=== PATIENT | female | born 1935 ===

== ENCOUNTER 2018-01-17 15:20 | Inpatient (IN) | payer MEDICARE, BC ==
[2018-01-17] MEDS ORDERED: DIAZEPAM 2 MG PO SCH (18:15)
[2018-01-17] MEDS ORDERED: OXYCODONE HCL 5 MG PO SCH (18:15)
[2018-01-17 19:57] LABS: EGFR Non-African American 97.6 (>60)
[2018-01-17] MEDS: Gabapentin CAP(*) 100 MG PO SCH (20:28)
[2018-01-17] MEDS: Phenytoin CAP(*) 100 MG CAP.ER PO SCH (20:28)
[2018-01-17] MEDS: Potassium Chlor TAB* 20 MEQ TAB.ER PO SCH (20:29)
[2018-01-17] MEDS: Aspirin EC TAB* 81 MG TAB.EC PO SCH (20:29)
[2018-01-17] MEDS ORDERED: Heparin VIAL(*) 5000 UNITS/ML VIAL (FIVE THOUSAND) SUBCUT SCH ×2 (22:00)
[2018-01-17] MEDS: Diazepam TAB(*) 5 MG PO PRN (22:23)
[2018-01-17] MEDS: CMCS:Melatonin (NF) 3 MG TAB PO SCH (22:24)
--- NOTE | 2018-01-17 22:36 | HP ---
HOSPITAL MEDICINE HISTORY AND PHYSICAL: DATE OF ADMISSION: 01/17/18 ATTENDING PHYSICIAN: Dr. Ju James * (dictation provided by Jamia Shelton, BULMARO ). CHIEF COMPLAINT: Left hip pain. HISTORY OF PRESENT ILLNESS: Ms. Rayo is an 82-year-old female with a past medical history of multiple sclerosis and inability to ambulate due to lower extremity paralysis, who presents to the hospital today from [facility] in transfer after being found to have a left femur fracture. Ms. Rayo states that she has not been able to ambulate since 1986 secondary to her multiple sclerosis. She continues to live at home with support of aides. She is Dewey lifted into and out of bed. On 11/27/17, she had a spontaneous spiral femur fracture. She was seen in consultation by Dr. Glez at [facility], and per the patient report "everything was in place" and that the patient would be well served with just the use of immobilizer, without surgery. The patient states she has had some significant pain with this, but had been tolerating that reasonably well. However, last night she had severe pain in both of her hips through the evening and then this morning, when she was rolled over in bed, she had sudden onset of very severe pain in her left hip. She felt that she had broken her hip and, therefore, presented to [facility] for evaluation. Her left hip fracture was confirmed in the emergency room. The case was reviewed briefly with Dr. Young over the phone and transfer to [facility] [place] for further evaluation was recommended. Ms. Rayo states that at her baseline, again, she is not able to ambulate. She has no known history of coronary artery disease or cardiac problem. She has a very poor cough due to muscular weakness. This is relevant because the patient stated that she was deemed inappropriate for an abdominal surgery approximately 4 years ago when she had cholecystitis. She was evaluated at [facility] and it was felt by Surgical and Pulmonary Team to be inappropriate to go on for surgery at that point. She has had an external biliary drain for those 4 years due to the inability to tolerate that surgery. She denies any chest pain or shortness of breath with any of the activities she is able to do, which are extraordinarily limited. PAST MEDICAL HISTORY: 1. 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 The patient essentially only has use of her left arm. 2. GERD. 3. Diverticulosis. 4. History of cholecystitis, managed with biliary drain in situ. 5. Neurogenic bladder. 6. History of mastectomy. 7. History of hysterectomy. 8. History of appendectomy. 9. Recent left femoral spiral fracture. 10. Frequent UTIs. 11. Seizures. 12. Constipation. MEDICATIONS: 1. Actigall 300 mg p.o. b.i.d. 2. Antacid 1 tab p.o. at bedtime. 3. Cranberry 200 mg p.o. b.i.d. 4. Melatonin 5 mg p.o. at bedtime. 5. Multivitamin with mineral 1 tab p.o. daily. 6. Tylenol 825 mg p.o. q.4 hours p.r.n. 7. Vitamin D 50,000 units p.o. daily. 8. Aspirin 81 mg p.o. at bedtime. 9. Bactrim DS 800/160, one tab p.o. daily. 10. Gabapentin 100 mg p.o. at bedtime. 11. Meloxicam 7.5 mg p.o. daily. 12. Oxycodone 5 mg p.o. q.6 hours p.r.n. 13. Phenytoin 100 mg p.o. at bedtime. 14. Potassium 20 mEq p.o. b.i.d. 15. Protonix 40 mg p.o. b.i.d. 16. Sodium with docusate 1 tab, Friday, Friday, and . 17. Valium 2 mg p.o. q.4 hours p.r.n. ALLERGIES: BACLOFEN, FLUOXETINE, SERTRALINE. FAMILY HISTORY: The patient reports that her mother and father both had heart disease. Mother related to a fall. Father related to heart attack. She has 4 siblings. She only notes history for one, which is her brother, who has normal pressure hydrocephalus. SOCIAL HISTORY: The patient is a former smoker, she smoked from 1954 to 1979. She rarely drinks alcohol. No report of drug use. She lives alone. She states that her sister would be her healthcare proxy, her name is Iram Garcia. REVIEW OF SYSTEMS: A 14-point review of systems was completed with Ms. Rayo , and all those not mentioned above were negative. PHYSICAL EXAMINATION GENERAL: Ms. Rayo is lying in the bed, she is in no acute distress, eating dinner. VITAL SIGNS: Temperature 98.8, pulse rate 86, respiratory rate 16, O2 saturation 92% on room air, blood pressure 119/44. LUNGS: Clear to auscultation bilaterally, with no accessory muscle use and good aeration. HEART: S1, S2. No murmur, rub, or gallop. ABDOMEN: Soft, nontender, with bowel sounds positive x4. Patient has biliary drain to right upper abdomen with green drainage, there is leakage around drain onto dressing. No associated erythema. Silver catheter in situ with yellow urine. EXTREMITIES: No cyanosis, no edema. SKIN: Intact. NEUROLOGIC: She is alert. She is oriented x3. 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 She is paralysed in both lower extremities. Her face is symmetrical. Her pupils are equal and reactive. Extraocular movements are intact. DIAGNOSTIC STUDIES/LAB DATA: Data is pending. EKG is pending. ASSESSMENT: Ms. Rayo is an 82-year-old female with a past medical history of multiple sclerosis, who is paralyzed and has not walked since 1986, who presents to the hospital today with concern for a femur fracture. Our plans are for inpatient admission, with expected length of stay to be greater than 2 days, for the followin. Left femur fracture. This is in the setting of a recent spiral fracture of the left femur in November. The patient likely has significant osteoporosis related to immobility and being elderly. She would likely be a very poor candidate for surgery given the osteoporosis, but Dr. Young will consult with her tomorrow to determine if a surgical intervention would be appropriate. In terms of cardiac risk, the patient has no known cardiac history, but obviously has no ability to exercise to evaluate her functional capacity. I do plan to obtain an EKG. The patient's bigger worry would be for her pulmonary status as she, from the multiple sclerosis, has a very weak diaphragm and very poor cough. It may be helpful to consult with the tubular splitting machine tender and/or insole stiffener if surgical intervention is planned for perioperative management recommendations. I do not think any further medication changes or testing would change any of these risk. We will continue to review this and collaborate with the orthopedic team regarding a plan for Ms. Rayo's care. In the meantime, the patient will have pain medications p.r.n. 2. History of seizures. Plan to continue Keppra. 3. History of frequent urinary tract infections. Continue Bactrim. UA is pending. 4. DVT prophylaxis with heparin subcu. 5. Code status is DNR. TIME SPENT: Approximately 60 minutes were spent on the admission of this patient, more than half of that time was spent with the patient at the bedside reviewing the events leading up to this hospitalization, performing the physical examination, and reviewing my plan of care. JAMIA SHELTON, BULMARO [id number]/[facility] #: [id number] CANDELARIO
[2018-01-18 00:33] LABS: Urine Appearance Clear; Urine Blood Negative (Negative); Urine Color Yellow; Urine Ketones Negative (Negative); Urine Protein Negative (Negative); Urine Specific Gravity 1.019 (1.010-1.030); Urine Urobilinogen Negative (Negative)
[2018-01-18] MEDS: oxyCODONE/Acetamin 5/325 MG* TAB PO PRN ×3 (03:03→15:37)
[2018-01-18] MEDS: oxyCODONE TAB* 5 MG TAB PO PRN (05:07)
[2018-01-18] MEDS: Acetaminophen TAB* 325 MG PO PRN (05:30)
[2018-01-18 06:01] LABS: ABS Basophils 0 10^3/ul (0-0.2); ABS Eosinophils 0.1 10^3/ul (0-0.6); ABS Lymphocytes 1.4 10^3/ul (1.0-4.8); ABS Monocytes 0.8 10^3/ul (0-0.8); ABS Neutrophils 8.2 10^3/ul (1.5-7.7); ABS Nucleated RBC 0 10^3/ul; Eosinophil % 1.2 % (0-6); Hematocrit 37 % (35-47); Hemoglobin 12.5 g/dl (12.0-16.0); Lymphocyte % 13.5 % (25-47); Mean Corpuscular HGB Conc 34 g/dl (31-36); Mean Corpuscular Hemoglobin 33 pg (27-31); Mean Corpuscular Volume 98 fL (80-97); Mean Platelet Volume 7.7 um3 (7.4-10.4); Nucleated Red Blood Cells % 0; Platelet Count 216 10^3/ul (150-450); Red Blood Count 3.78 10^6/ul (4.0-5.4); Red Cell Distribution Width 13 % (10.5-15); White Blood Count 10.7 10^3/ul (3.5-10.8)
[2018-01-18] MEDS: Omeprazole CAP* 20 MG PO SCH (08:13)
[2018-01-18] MEDS ORDERED: PROTONIX 40 MG PO SCH (09:00)
[2018-01-18] MEDS ORDERED: Sulfamethox/Trimethoprim DS 800/160* TAB PO SCH (09:00)
[2018-01-18] MEDS: CMCS:Meloxicam(NF) 7.5 MG TAB PO SCH (09:43)
[2018-01-18] MEDS: Potassium Chlor TAB* 20 MEQ TAB.ER PO SCH ×2 (09:43→20:22)
--- NOTE | 2018-01-18 10:32 | ECHO ---
Patient: JACQUELINE SCOTT [facility] Rec#: [id number] : 1935 Date: 01/18/2018 Age: 82y Height: 165 cm / 65.0 in Weight: 71.4 kg / 157.4 lbs Sex: F BSA: 1.79 Room#: [facility] Admit Date#: 01/17/2018 Type: Inpatient Referring: Jamia Shelton NP Reading: Anton Shafer DO Chief Quality Officer: Melody Graf RN RDCS Transthoracic Echocardiogram Indication: Abnormal EKG showing LAE and RBBB BP: 131/44 HR: 101 Rhythm: Tachycardia Findings History: Multiple sclerosis with bilateral lower extremity paralysis, former smoker, GERD, mastectomy, recent left femur fracture Technical Comments: The study quality is fair. The study is technically limited due to the patient's smoking history. The study was technically limited due to the patient's inability to lay in the left lateral decubitus position. Left Ventricle: The left ventricular chamber size is normal. Basal interventricular septum shows moderate thickening. Global left ventricular wall motion and contractility are within normal limits. The left ventricle appears hyperdynamic. The estimated ejection fraction is greater than 65%. The assessment of diastolic function is non-diagnostic. Left Atrium: The left atrial chamber size is normal. Right Ventricle: The right ventricular chamber size and systolic function are within normal limits. Right Atrium: The right atrial cavity size is normal. Aortic Valve: The aortic valve is trileaflet. The aortic valve leaflets are mildly thickened. There is no evidence of aortic regurgitation. There is no evidence of aortic stenosis. Mitral Valve: Mild mitral annular calcification present. The mitral valve leaflets are mildly thickened. There is a trace of mitral regurgitation. There is no evidence of mitral stenosis. Tricuspid Valve: The tricuspid valve leaflets are normal. There is mild tricuspid regurgitation. The right ventricular systolic pressure is estimated at 63 mmHg. There is evidence of severe pulmonary hypertension. There is no tricuspid stenosis. Pulmonic Valve: The pulmonic valve structure is not well visualized. There is no evidence of pulmonic regurgitation. There is no pulmonic stenosis. Pericardium: There is no significant pericardial effusion. A pericardial fat pad is visualized. Aorta: There is no dilatation of the ascending aorta. There is no dilatation of the aortic arch. There is no dilation of the aortic root. Pulmonary Artery: The main pulmonary artery is not well visualized. Venous: The venous system is not well visualized. The inferior vena cava is not visualized. Conclusions The left ventricular chamber size is normal. Basal interventricular septum shows moderate thickening. Global left ventricular wall motion and contractility are within normal limits. The left ventricle appears hyperdynamic. The estimated ejection fraction is greater than 70%. The left atrial chamber size is normal. The right ventricular chamber size and systolic function are within normal limits. There is mild tricuspid regurgitation. There is evidence of severe pulmonary hypertension. The right ventricular systolic pressure is estimated at 63 mmHg assuming an RA pressure of 8 mmHg No prior studies available for comparison at time of interpretation Measurements Name Value Normal Range RVDdMajor (2D) 3.4 cm (2.2 - 4.4) RVAW (2D) 0.9 cm (0.2 - 0.5) RAd ISD 4CH 3.7 cm (3.4 - 4.9) RA (A4C)W 4.1 cm (2.9 - 4.6) IVSd (2D) 1 cm (0.6 - 1) LVPWd (2D) 1 cm (0.6 - 1) LVIDd (2D) 3.7 cm (3.6 - 5.4) LVIDs (2D) 2.3 cm - LV FS (2D) 38 % (25 - 45) Aortic Annulus 1.9 cm (1.4 - 2.6) Ao root diameter (2D) 3.1 cm (2.1 - 3.5) Ascending Ao 3.4 cm (2.1 - 3.4) Aortic arch 2.2 cm (1.8 - 3.4) LA dimension (AP) 2D 2.9 cm (2.3 - 3.8) LAd ISD 4CH 3.7 cm (2.9 - 5.3) LA ISD 4CH W 3.5 cm (2.5 - 4.5) Name Value Normal Range LA ESV SP 4CH (A/L) 43 ml - LA ESV SP 2CH (A/L) 17 ml - LA ESV BP (A/L) 28 ml - LA ESV BP (A/L) index 15.6 ml/m2 - LA ESV SP 4CH (MOD) 43 ml - LA ESV SP 2CH (MOD) 17 ml - Name Value Normal Range MV E-wave Vmax 0.75 m/sec - MV deceleration time 303 msec - MV A-wave Vmax 1 m/sec - MV E:A ratio 0.72 ratio - LV septal e' Vmax 0.05 m/sec - LV lateral e' Vmax 0.06 m/sec - LV E:e' septal ratio 15 ratio - LV E:e' lateral ratio 12.5 ratio - Name Value Normal Range AV Vmax 1.4 m/sec - AV VTI 25.9 cm - AV peak gradient 6.3 mmHg - AV mean gradient 4.8 mmHg - LVOT Vmax 0.98 m/sec - LVOT VTI 19.6 cm - LVOT peak gradient 3.8 mmHg - LVOT mean gradient 2.4 mmHg - ENID Vmax 0.45 m/sec - Name Value Normal Range TR Vmax 3.7 m/sec - TR peak gradient 55 mmHg - RAP 8 mmHg - RVSP 63 mmHg - Name Value Normal Range PV Vmax 1.2 m/sec -
--- NOTE | 2018-01-18 12:49 | RAD ---
INDICATION: Left hip injury. COMPARISON: There are no prior studies available for comparison. TECHNIQUE: An oblique view of the pelvis and an AP view of the left hip were obtained. The patient was unable to be positioned for the standard images. FINDINGS: The bones are osteopenic. There is a subcapital left femoral neck fracture which is displaced. The distal fragment is displaced laterally and the fracture fragments appear to be in varus angulation. IMPRESSION: DISPLACED ANGULATED SUBCAPITAL LEFT FEMORAL NECK FRACTURE.
--- NOTE | 2018-01-18 12:58 | RAD ---
INDICATION: Left femoral neck fracture, preoperative evaluation. COMPARISON: Comparison is made with prior x-ray study of the left hip. TECHNIQUE: 2 views of the left femur were obtained. FINDINGS: The bones are osteopenic. Again note is made of a displaced subcapital femoral neck fracture. There is also a slightly impacted acute to subacute fracture of the distal diaphysis of the femur approximately at the junction of the middle and distal thirds. There is also a band of sclerosis in the distal metaphysis which likely represents a slightly impacted subacute fracture. The results of this exam were discussed with the referring clinician. IMPRESSION: 1. ACUTE DISPLACED SUBCAPITAL FEMORAL NECK FRACTURE. 2. ACUTE TO SUBACUTE SLIGHTLY DISPLACED FRACTURE OF THE DISTAL DIAPHYSIS OF THE FEMUR. 3. PROBABLE SUBACUTE SLIGHTLY IMPACTED FRACTURE OF THE DISTAL METAPHYSIS OF THE FEMUR.
[2018-01-18] MEDS: Diazepam TAB(*) 5 MG PO PRN ×2 (15:41→22:07)
--- NOTE | 2018-01-18 15:59 | PN ---
Subjective Date of Service: 01/18/18 Interval History: Pain control OK. Objective Active Medications: Acetaminophen (Tylenol Tab*) 650 mg PO Q4H PRN PRN Reason: FEVER/PAIN Last Admin: 01/18/18 05:30 Dose: 650 mg Aspirin (Aspirin Ec Tab*) 81 mg PO BEDTIME [facility] Last Admin: 01/17/18 20:29 Dose: 81 mg Diazepam (Valium Tab(*)) 2.5 mg PO Q4H PRN PRN Reason: muscle spasm Last Admin: 01/18/18 15:41 Dose: 2.5 mg Docusate Sodium (Colace Cap*) 100 mg PO SuTuTh [facility] Gabapentin (Neurontin Cap(*)) 100 mg PO BEDTIME [facility] Last Admin: 01/17/18 20:28 Dose: 100 mg Melatonin (Melatonin (Nf)) 3 mg PO BEDTIME [facility] Last Admin: 01/17/18 22:24 Dose: Not Given Meloxicam (Mobic(Nf)) 7.5 mg PO DAILY [facility] Last Admin: 01/18/18 09:43 Dose: 7.5 mg Morphine Sulfate (Morphine Vial*) 1 mg IV Q4H PRN PRN Reason: PAIN Omeprazole (Prilosec Cap*) 20 mg PO DAILY@0730 [facility] Last Admin: 01/18/18 08:13 Dose: 20 mg Oxycodone HCl (Roxycodone Tab*) 5 mg PO Q6H PRN PRN Reason: PAIN Last Admin: 01/18/18 05:07 Dose: 5 mg Oxycodone/Acetaminophen (Percocet 5/325 Tab*) 1 tab PO Q4H PRN PRN Reason: Pain Last Admin: 01/18/18 15:37 Dose: 1 tab Phenytoin Sodium (Dilantin Cap(*)) 100 mg PO BEDTIME [facility] Last Admin: 01/17/18 20:28 Dose: 100 mg Potassium Chloride (Klor Con Er Tab*) 20 meq PO BID [facility] Last Admin: 01/18/18 09:43 Dose: 20 meq Senna (Senokot Tab*) 1 tab PO S[place]UTH [facility] Vital Signs - 8 hr 01/18/18 01/18/18 01/18/18 08:00 08:03 08:31 Temperature 97.9 F Pulse Rate 96 Respiratory 19 19 Rate Blood Pressure 91/37 110/58 (mmHg) O2 Sat by Pulse 91 Oximetry 01/18/18 01/18/18 01/18/18 10:57 11:01 11:33 Temperature 98.6 F 99.5 F Pulse Rate 96 Respiratory 18 18 Rate Blood Pressure 126/40 (mmHg) O2 Sat by Pulse 91 Oximetry 01/18/18 01/18/18 01/18/18 13:56 15:37 15:41 Temperature Pulse Rate Respiratory 18 16 16 Rate Blood Pressure (mmHg) O2 Sat by Pulse Oximetry Oxygen Devices in Use Now: None Appearance: Alert, partly up in bed. In good spirits. Looks comfortable. Eyes: No Scleral Icterus Respiratory: Symmetrical Chest Expansion and Respiratory Effort, Clear to Auscultation, Clear to Percussion Cardiovascular: NL Sounds; No Murmurs; No JVD, RRR, No Edema, - Extremities: No Edema, No Clubbing, Cyanosis, - - R leg flexed at hip and knee, everted. L leg in immobilizer. Skin: No Rash or Ulcers, No Nodules or Sclerosis, - Neurological: Alert and Oriented x 3 - No tremor. Paraplegic Result Diagrams: 01/18/18 05:39 01/18/18 05:39 Assess/Plan/Problems-Billing Assessment: - Patient Problems (1) Closed left femoral fracture Current Visit: Yes Status: Acute Code(s): S72.92XA - UNSP FRACTURE OF LEFT FEMUR, INIT ENCNTR FOR CLOSED FRACTURE SNOMED Code(s): 24571719 Comment: Patient is optimized for surgery. The benefits outweigh the risks. Portable CXR ordered to complete the pre-op evaluation. Her co-morbidities include severe pulmonary hypertension, neurogenic bladder, paraplegia, 26 yr hx of smoking, chronic biliary drain. (2) Pulmonary hypertension Current Visit: Yes Status: Acute Code(s): I27.20 - PULMONARY HYPERTENSION, UNSPECIFIED SNOMED Code(s): 82142459 Comment: Seen on echo 01/17/18. Previous echo over 20 yrs ago. Not causing sc 's at this time. Likely secondary to smoking hx. (3) Multiple sclerosis Current Visit: Yes Status: Acute Code(s): G35 - MULTIPLE SCLEROSIS SNOMED Code(s): 40242734 Comment: WC bound for many yrs, transfers with Dewey lift. (4) Neurogenic bladder Current Visit: Yes Status: Acute Code(s): N31.9 - NEUROMUSCULAR DYSFUNCTION OF BLADDER, UNSPECIFIED SNOMED Code(s): 380103949 Comment: Pt states she has poor emptying, aides press on her bladder twice a day at home. Silver for now. Abnl U/A, C&S pending as of 01/18. Start IV cefazolin 01/18. Note her C&S from 11/30 showed E.coli res to the SMX-TMP she takes chronically (which I d/c'd).
[2018-01-18] MEDS ORDERED: ceFAZolin 1 GM VIAL(*) 1 GM in NS 0.9% 50 ML* 50 ML IVPB SCH (16:00)
--- NOTE | 2018-01-18 16:21 | RAD ---
INDICATION: Preoperative evaluation. COMPARISON: There are no prior studies available for comparison. TECHNIQUE: A portable view of the chest was obtained. FINDINGS: The heart is within normal limits in size for this portable exam. The lungs are underinflated and clear. No pleural effusion is seen. There is a moderate dorsal scoliosis convex toward the right side. IMPRESSION: NO EVIDENCE FOR ACUTE DISEASE.
[2018-01-18] MEDS ORDERED: ceFAZolin 1 GM in Dextrose (*) 1 GM/50 ML BAG IVPB SCH (16:59)
[2018-01-18] MEDS: ceFAZolin 1 GM in Dextrose (*) 1 GM/50 ML BAG IVPB SCH (17:14)
[2018-01-18] MEDS ORDERED: Ondansetron ODT TAB* 4 MG SL PRN (17:58)
[2018-01-18] MEDS ORDERED: Ondansetron ODT TAB* 4 MG ONE (18:01)
[2018-01-18] MEDS ORDERED: Senna TAB PO SCH (18:04)
[2018-01-18] MEDS: Gabapentin CAP(*) 100 MG PO SCH (20:22)
[2018-01-18] MEDS: Phenytoin CAP(*) 100 MG CAP.ER PO SCH (20:22)
[2018-01-18] MEDS: CMCS:Melatonin (NF) 3 MG TAB PO SCH (20:23)
[2018-01-18] MEDS: Aspirin EC TAB* 81 MG TAB.EC PO SCH (20:23)
[2018-01-18] MEDS ORDERED: Docusate CAP* 100 MG PO SCH (20:37)
--- NOTE | 2018-01-18 20:37 | CONS ---
ORTHOPEDIC CONSULTATION REPORT: DATE OF CONSULT: 01/18/18 ATTENDING PHYSICIAN: Isabel Young MD Thank you for this orthopedic consultation. CHIEF COMPLAINT: Left hip pain. HISTORY OF PRESENT ILLNESS: Ms. Rayo is an 82-year-old female who is nonambulatory with end-stage multiple sclerosis. She has lower extremity paralysis. On 11/27/17, she caught her ankle, twisted her leg and had a left femoral shaft fracture. She has been treated by Dr. Glez for this. She has been treated nonoperatively in a knee immobilizer. The patient reports that she was feeling pain in the left hip throughout the evening, while sitting up and then when she rolled over in bed, she had the sudden onset of 10/10 pain in the left hip. Any movement through the hip increased her pain. She was brought to the [facility] Emergency Room and diagnosed with a displaced femoral neck fracture. The patient was [place] [facility] [place] and surgical candidacy review. Today, the patient is reporting that she was told she was not an appropriate surgical candidate 4 years ago at [facility] by the surgical and pulmonary team. She understands she is a high risk for surgery. Her number one priority is being able to get out of bed and sit in her wheelchair again. She would like to accept any risk and proceed with surgical intervention. PAST MEDICAL HISTORY: Multiple sclerosis with bilateral lower extremity paralysis. She essentially has the use of her left arm. GERD. Diverticulosis, cholecystitis history, neurogenic bladder, recent left femoral shaft fracture, osteoporosis, UTIs, seizures, chronic constipation. PAST SURGICAL HISTORY: Biliary drain placement for cholecystitis, mastectomy, hysterectomy, appendectomy. MEDICATIONS: 1. Actigall 300 mg p.o. b.i.d. 2. Melatonin 5 mg p.o. q.h.s. 3. Multivitamin 1 tab p.o. daily. 4. Vitamin D 50,000 units p.o. daily. 5. Aspirin 81 mg p.o. daily. 6. Bactrim DS 800/160 one tab p.o. daily. 7. Gabapentin 100 mg p.o. q.h.s. 8. Meloxicam 7.5 mg p.o. daily. 9. Oxycodone 5 mg q.6 hours p.r.n. 10. Phenytoin 100 mg p.o. q.h.s. 11. Potassium 20 mEq p.o. b.i.d. 12. Protonix 40 mg p.o. b.i.d. 13. Valium 2 mg p.o. q.4 hours p.r.n. ALLERGIES: BACLOFEN, FLUOXETINE, SERTRALINE. FAMILY HISTORY: Maternal and paternal heart disease. SOCIAL HISTORY: The patient is a former smoker. She rarely drinks alcohol. No recreational drug use. She is nonambulatory, essentially wheelchair bound with use of her left upper extremity only. Her sister is her healthcare proxy, Iram Garcia. REVIEW OF SYSTEMS: 14 systems reviewed with the patient today. Positive for left hip pain, left thigh pain, recent left femoral shaft fracture, bilateral lower extremity weakness and numbness. Otherwise, the patient reports review of systems is negative or not relevant. PHYSICAL EXAM: Vitals: Temperature 99.5, heart rate 96, blood pressure 126/ 40. General: The patient is a morbidly obese female lying in bed. She is alert and oriented x3. Pleasant mood, appropriate affect. She asks extremely intelligent and appropriate questions and is clear on her wants and needs. Gait is not assessed. Coordination not assessed. Heart: S1 and S2. Lungs: Clear to auscultation bilaterally. Unlabored breathing. Abdomen: Soft, nontender, nondistended. Biliary drain of right upper abdomen with a green drainage. Some leakage on to the dressing around the drain. Bilateral upper extremities: The patient's skin is intact. No bony tenderness to palpation. 2 + palpable radial pulses. Right lower extremity: The patient's skin is intact. No abrasions or open wounds. No active motion distally. Decreased sensation to light touch. 2+ palpable DP pulse. No bony tenderness to palpation. Left lower extremity: The patient's leg is externally rotated. Tenderness with palpation of the thigh. No motor distally. She has some decreased sensation distally. 2+ palpable DP pulse. DIAGNOSTIC STUDIES/LAB DATA: Labs from 01/18/18 show white blood cell 10.7, hematocrit 37, platelets 216,000. Sodium 135, potassium 4.6, chloride 109, BUN and creatinine 17 and 0.59. Urine positive for nitrites and bacteria. Radiographs: I have ordered left hip and femur views which show a displaced femoral neck fracture. Also a healing subacute femoral shaft fracture and a healing subacute distal femoral fracture. ASSESSMENT AND PLAN: Ms. Rayo is an 82-year-old female with end-stage multiple sclerosis, bilateral lower extremity paralysis and multiple medical comorbidities. Simply from a turn in bed, without trauma, she has a left femoral neck fracture. This is within 2 months of twisting injury to the left leg with femoral shaft fracture and distal femur fracture. The patient is an extremely poor surgical candidate. We discussed this at length today. She has extreme osteopenia on radiographs. There are essentially pathologic fractures secondary to osteoporosis. The patient and I discussed that the treatment for this hip fracture is a hemiarthroplasty. Due to her fractures distally, she is not a candidate for this. Her primary goal is to have pain relief at this point and be able to sit in her wheelchair again. I do feel that a Girdlestone procedure would be appropriate for her and our goal would be pain control and wheelchair accessibility. First and foremost, we will consult the medical team and cardiac team to see if she is a surgical candidate. We will also consult Anesthesia to see if she is a surgical candidate in their opinion. If both groups decide that she is high risk but still a surgical candidate, I am willing to perform left hip Girdlestone procedure. The patient understands that she is high risk for bleeding, infection, damage to nearby structures, re-fracture through her distal femoral fracture sites, intraoperative fracture, need for further surgery, failure to heal, continued pain, stroke, heart attack, blood clots, respiratory failure and . She wishes to proceed despite these high risks. For now, we will await Medicine, Cardiac and Anesthesia recommendations. She will have p.r.n. analgesia and be on bedrest. [id number]/[facility] [place] #: [id number] CANDELARIO
[2018-01-19] MEDS: ceFAZolin 1 GM in Dextrose (*) 1 GM/50 ML BAG IVPB SCH ×3 (01:21→16:56)
[2018-01-19] MEDS: oxyCODONE/Acetamin 5/325 MG* TAB PO PRN (04:19)
[2018-01-19] MEDS: Diazepam TAB(*) 5 MG PO PRN ×3 (04:19→21:35)
[2018-01-19] MEDS: Omeprazole CAP* 20 MG PO SCH (07:52)
[2018-01-19] MEDS: Multivitamins/Minerals TAB PO SCH (09:37)
[2018-01-19] MEDS: Potassium Chlor TAB* 20 MEQ TAB.ER PO SCH ×2 (09:37→21:37)
[2018-01-19] MEDS: CMCS:Meloxicam(NF) 7.5 MG TAB PO SCH (09:42)
--- NOTE | 2018-01-19 14:29 | PN ---
Progress Note - Progress Note Date of Service: 01/19/18 SOAP: Subjective: 82 y/o female with displaced femoral neck fracture, left. Patient would like surgery as wants to remain as independent as possible with wheel chair transfers. VSS, afebrile overnight. Objective: General- Well appearing, NAD, AO, Resting in bed comfortably. Vital Signs Temp 97.5 F 01/19/18 11:31 Pulse 98 01/19/18 11:31 Resp 18 01/19/18 14:01 BP 124/46 01/19/18 11:31 Pulse Ox 95 01/19/18 11:31 Intake & Output 01/18/18 01/19/18 01/19/18 18:59 06:59 18:59 Intake Total 240 890 Output Total 575 420 575 Balance -335 470 -575 Intake: IV Fluids 70 ABX - CEFAZOLIN 50 NS (0.9%) 20 Oral 240 820 Output: Pigtail Drain 300 50 450 Urine 120 Silver 275 250 125 Other: # Bowel Movements 0 Assessment: Stable displaced femoral neck fracture, left Plan: - Possible OR for pelvic girdle procedure, unable to do aliyah due to patients femoral fracture. Patient is high risk for poor wound, bone healing due to non- weigth bearing. - Pulmonary Hypertension- Dr. White to see this afternoon - DVT prophylaxis- lovenox in house, hold for procedure - NPO pMN - PT/ OT - H&H - Stable. Acetaminophen (Tylenol Tab*) 650 mg PO Q4H PRN PRN Reason: FEVER/PAIN Last Admin: 01/18/18 05:30 Dose: 650 mg Aspirin (Aspirin Ec Tab*) 81 mg PO BEDTIME [facility] Last Admin: 01/18/18 20:23 Dose: 81 mg Diazepam (Valium Tab(*)) 2.5 mg PO Q4H PRN PRN Reason: muscle spasm Last Admin: 01/19/18 11:11 Dose: 2.5 mg Docusate Sodium (Colace Cap*) 100 mg PO SuTuTh [facility] Last Admin: 01/18/18 20:23 Dose: 100 mg Gabapentin (Neurontin Cap(*)) 100 mg PO BEDTIME [facility] Last Admin: 01/18/18 20:22 Dose: 100 mg Cefazolin Sodium/Dextrose (Kefzol 1 Gm In Dextrose Duplex (*)) 1 gm in 50 mls @ 200 mls/hr IVPB Q8H [facility] Last Admin: 01/19/18 09:42 Dose: 200 mls/hr Melatonin (Melatonin (Nf)) 3 mg PO BEDTIME [facility] Last Admin: 01/18/18 20:23 Dose: Not Given Meloxicam (Mobic(Nf)) 7.5 mg PO DAILY [facility] Last Admin: 01/19/18 09:42 Dose: 7.5 mg Morphine Sulfate (Morphine Vial*) 1 mg IV Q4H PRN PRN Reason: PAIN Multivitamins/Minerals (Theragran/Minerals Tab*) 1 tab PO DAILY [facility] Last Admin: 01/19/18 09:37 Dose: 1 tab Omeprazole (Prilosec Cap*) 20 mg PO DAILY@0730 [facility] Last Admin: 01/19/18 07:52 Dose: 20 mg Ondansetron HCl (Zofran Odt Tab*) 4 mg SL Q4H PRN PRN Reason: NAUSEA/VOMITING Oxycodone HCl (Roxycodone Tab*) 5 mg PO Q6H PRN PRN Reason: PAIN Last Admin: 01/18/18 05:07 Dose: 5 mg Oxycodone/Acetaminophen (Percocet 5/325 Tab*) 1 tab PO Q4H PRN PRN Reason: Pain Last Admin: 01/19/18 04:19 Dose: 1 tab Phenytoin Sodium (Dilantin Cap(*)) 100 mg PO BEDTIME [facility] Last Admin: 01/18/18 20:22 Dose: 100 mg Potassium Chloride (Klor Con Er Tab*) 20 meq PO BID [facility] Last Admin: 01/19/18 09:37 Dose: 20 meq Senna (Senokot Tab*) 1 tab PO [facility] [facility] Last Admin: 01/18/18 18:12 Dose: 1 tab
[2018-01-19] MEDS ORDERED: Heparin VIAL(*) 5000 UNITS/ML VIAL (FIVE THOUSAND) SUBCUT SCH (15:28)
--- NOTE | 2018-01-19 15:31 | PN ---
Subjective Date of Service: 01/19/18 Interval History: Complains of pain at the left hip and also in the distal left femur. she also feels her left hand is a little weaker than usual. Objective Active Medications: Acetaminophen (Tylenol Tab*) 650 mg PO Q4H PRN PRN Reason: FEVER/PAIN Last Admin: 01/18/18 05:30 Dose: 650 mg Aspirin (Aspirin Ec Tab*) 81 mg PO BEDTIME [facility] Last Admin: 01/18/18 20:23 Dose: 81 mg Diazepam (Valium Tab(*)) 2.5 mg PO Q4H PRN PRN Reason: muscle spasm Last Admin: 01/19/18 11:11 Dose: 2.5 mg Docusate Sodium (Colace Cap*) 100 mg PO SuTuTh [facility] Last Admin: 01/18/18 20:23 Dose: 100 mg Gabapentin (Neurontin Cap(*)) 100 mg PO BEDTIME [facility] Last Admin: 01/18/18 20:22 Dose: 100 mg Cefazolin Sodium/Dextrose (Kefzol 1 Gm In Dextrose Duplex (*)) 1 gm in 50 mls @ 200 mls/hr IVPB Q8H [facility] Last Admin: 01/19/18 09:42 Dose: 200 mls/hr Melatonin (Melatonin (Nf)) 3 mg PO BEDTIME [facility] Last Admin: 01/18/18 20:23 Dose: Not Given Meloxicam (Mobic(Nf)) 7.5 mg PO DAILY [facility] Last Admin: 01/19/18 09:42 Dose: 7.5 mg Morphine Sulfate (Morphine Vial*) 1 mg IV Q4H PRN PRN Reason: PAIN Multivitamins/Minerals (Theragran/Minerals Tab*) 1 tab PO DAILY [facility] Last Admin: 01/19/18 09:37 Dose: 1 tab Omeprazole (Prilosec Cap*) 20 mg PO DAILY@0730 [facility] Last Admin: 01/19/18 07:52 Dose: 20 mg Ondansetron HCl (Zofran Odt Tab*) 4 mg SL Q4H PRN PRN Reason: NAUSEA/VOMITING Oxycodone HCl (Roxycodone Tab*) 5 mg PO Q6H PRN PRN Reason: PAIN Last Admin: 01/18/18 05:07 Dose: 5 mg Oxycodone/Acetaminophen (Percocet 5/325 Tab*) 1 tab PO Q4H PRN PRN Reason: Pain Last Admin: 01/19/18 04:19 Dose: 1 tab Phenytoin Sodium (Dilantin Cap(*)) 100 mg PO BEDTIME [facility] Last Admin: 01/18/18 20:22 Dose: 100 mg Potassium Chloride (Klor Con Er Tab*) 20 meq PO BID [facility] Last Admin: 01/19/18 09:37 Dose: 20 meq Senna (Senokot Tab*) 1 tab PO [place] [facility] Last Admin: 01/18/18 18:12 Dose: 1 tab Vital Signs - 8 hr 01/19/18 01/19/18 01/19/18 07:44 08:00 11:11 Temperature 97.3 F Pulse Rate 103 Respiratory 14 18 18 Rate Blood Pressure 137/41 (mmHg) O2 Sat by Pulse Oximetry 01/19/18 01/19/18 11:31 14:01 Temperature 97.5 F Pulse Rate 98 Respiratory 16 18 Rate Blood Pressure 124/46 (mmHg) O2 Sat by Pulse 95 Oximetry Oxygen Devices in Use Now: Nasal Cannula Appearance: alert, no distress, nontoxic Eyes: No Scleral Icterus Ears/Nose/Mouth/Throat: NL Teeth, Lips, Gums Neck: NL Appearance and Movements; NL JVP Respiratory: Symmetrical Chest Expansion and Respiratory Effort, Clear to Auscultation Cardiovascular: RRR, No Edema Abdominal: NL Sounds; No Tenderness; No Distention, No Hepatosplenomegaly, - - biliary drain ruq draining yellow-brown Lymphatic: No Cervical Adenopathy Extremities: No Edema Skin: No Rash or Ulcers Neurological: Alert and Oriented x 3, - - strength 3/5 LUE, 0/5 in RUE, and b/l LEs, sensation in tact Result Diagrams: 01/18/18 05:39 01/18/18 05:39 Microbiology and Other Data: Microbiology 01/17/18 12:00 Urine Culture - Preliminary Urine Escherichia Coli Assess/Plan/Problems-Billing Assessment: - Patient Problems (1) Closed left femoral fracture Current Visit: Yes Status: Acute Code(s): S72.92XA - UNSP FRACTURE OF LEFT FEMUR, INIT ENCNTR FOR CLOSED FRACTURE SNOMED Code(s): 25375643 Comment: I had a long discussion with Ms. Rayo and her sister Iram about the risks of surgery, and whether it will be helpful to her. Ultimately, her biggest goal is to be able to get out of bed and into her wheelchair--she is able to host friends, facetime on her ipad, and socialize in her wheelchair, and these are her biggest priorities. She volunteered that she would risk perioperatively to avoid being bedbound. Certainly she is elevated risk for perioperative complications and she needs further evaluation, specifically by Dr. White. Of note, she was not deemed to be an operative candidate a few years ago for her gallbladder because of the need for general anesthesia, but for this procedure, spinal anesthesia will be used. From a cardiac standpoint, NSQIP: 0.6% risk for major adverse cardiac event RCRI: 0.4% risk for major adverse cardiac event Based on these risks, no further cardiac work up is necessary unless recommended from a PH standpoint, as she has severely elevated RVSP (2) Multiple sclerosis Current Visit: Yes Status: Acute Code(s): G35 - MULTIPLE SCLEROSIS SNOMED Code(s): 54503899 Comment: WC bound for many yrs, transfers with Dewey lift Uses left hand, other extremities not usable. (3) Neurogenic bladder Current Visit: Yes Status: Acute Code(s): N31.9 - NEUROMUSCULAR DYSFUNCTION OF BLADDER, UNSPECIFIED SNOMED Code(s): 370757040 Comment: At home, gets straight cath BID Now with paz periop Abnl U/A, IV cefazolin started 01/18. Note her C&S from 11/30 showed E.coli res to the SMX-TMP she takes chronically ( now d/c'd). (4) Pulmonary hypertension Current Visit: Yes Status: Acute Code(s): I27.20 - PULMONARY HYPERTENSION, UNSPECIFIED SNOMED Code(s): 05380241 Comment: appreciate evaluation by Dr. White re: utility of pulmonary vasodilators at this point?
[2018-01-19] MEDS: Acetaminophen TAB* 325 MG PO PRN ×2 (16:11→21:33)
[2018-01-19] MEDS: oxyCODONE TAB* 5 MG TAB PO PRN (19:23)
[2018-01-19 20:08] LABS: ABS Basophils 0.1 10^3/ul (0-0.2); ABS Eosinophils 0.2 10^3/ul (0-0.6); ABS Lymphocytes 1.4 10^3/ul (1.0-4.8); ABS Monocytes 0.8 10^3/ul (0-0.8); ABS Neutrophils 8.6 10^3/ul (1.5-7.7); ABS Nucleated RBC 0 10^3/ul; Eosinophil % 1.8 % (0-6); Hematocrit 36 % (35-47); Hemoglobin 11.8 g/dl (12.0-16.0); Lymphocyte % 12.9 % (25-47); Mean Corpuscular HGB Conc 33 g/dl (31-36); Mean Corpuscular Hemoglobin 33 pg (27-31); Mean Corpuscular Volume 100 fL (80-97); Mean Platelet Volume 7.8 um3 (7.4-10.4); Nucleated Red Blood Cells % 0; Platelet Count 181 10^3/ul (150-450); Red Blood Count 3.64 10^6/ul (4.0-5.4); Red Cell Distribution Width 14 % (10.5-15); White Blood Count 11.1 10^3/ul (3.5-10.8)
[2018-01-19 20:16] LABS: INR 0.95 (0.77-1.02)
[2018-01-19 20:22] LABS: EGFR Non-African American 80.1 (>60)
--- NOTE | 2018-01-19 21:12 | CONS ---
PULMONARY CONSULTATION REPORT: DATE OF CONSULT: 01/19/18 CONSULTATION REQUESTED BY: ALIZE Welch/ Dr. Young. REASON FOR CONSULT: Evaluation of pulmonary complication risk in patient with pulmonary hypertension. HISTORY OF PRESENT ILLNESS: The patient is an 82-year-old female with history of multiple sclerosis, bedridden due to lower extremity paralysis, who was transferred from [facility] after being found to have left femur fracture. She has not been able to ambulate since 1986 secondary to multiple sclerosis, lives at home with help of aides. On 11/27/17, she had spontaneous femur fracture, was seen by Dr. Glez in [facility] and was being served with use of immobilizer without need for surgery. She has been having significant pain due to the immobilizer and has not been able to tolerate it well, her pain has progressed significantly, and was noted to have a fracture. The patient was transferred to [facility] for further evaluation. The patient is a former smoker, never was diagnosed with COPD or other lung problems. She denies chronic cough or sputum production. She had quit smoking in . She has not been on any inhalers for her breathing. The patient reports that she has difficulty expectorating the phlegm. She has a history of cholecystitis, needed surgery which was postponed because of her complications and underwent cholecystostomy. The patient is not in any apparent distress at the time of exam. She has no known history of coronary artery disease or cardiac problems. She also has a history of seizure disorder and neurogenic bladder. She is unable to provide any information regarding dyspnea on exertion as she does not ambulate. She underwent a biliary drain placement 4 years ago due to inability to tolerate the surgery and also deemed to be at high complication risk for any surgical procedure. Further evaluation included chest x-ray and echocardiogram. I have personally reviewed chest x- ray images. The patient noted to have clear lung wasserman with no evidence of pleural effusion, fibrosis or atelectasis. Echocardiogram showed evidence of severe pulmonary hypertension with estimated right ventricular pressure of 63. The patient also noted to have mild tricuspid regurgitation. Right ventricular chamber size and systolic function are within normal limits. Ejection fraction was estimated at 70% with hyperdynamic left ventricle. The patient otherwise without any fevers, chills. Has chronic constipation, which is unchanged. Also has history of neurogenic bladder with urine cultures positive for E. coli. PAST MEDICAL HISTORY: 1. 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 2. GERD. 3. Diverticulosis. 4. Cholecystitis, managed with biliary drain in situ. 5. Neurogenic bladder. 6. Mastectomy. 7. Hysterectomy. 8. Appendectomy. 9. Recent left femoral spiral fracture. 10. Frequent UTIs. 11. Seizures. 12. Constipation. MEDICATIONS: 1. Actigall 300 mg p.o. b.i.d. 2. Antacid 1 tab at bedtime. 3. Cranberry 200 mg p.o. b.i.d. 4. Melatonin 5 mg p.o. at bedtime. 5. Multivitamin with mineral 1 tablet daily. 6. Tylenol 650 mg p.o. q.4 hours p.r.n. for pain. 7. Vitamin D. 8. Aspirin. 9. Bactrim double strength. 10. Gabapentin. 11. Meloxicam. 12. Oxycodone. 13. Phenytoin. 14. Potassium. 15. Protonix. 16. Sodium with docusate. 17. Valium. ALLERGIES: BACLOFEN, FLUOXETINE, SERTRALINE. FAMILY HISTORY: Mother and father with heart disease. Mother related to fall. Father related to heart attack. She has 4 siblings, her sister is her healthcare proxy. SOCIAL HISTORY: Former smoker, smoked from 1954 to 1979. Rarely drinks alcohol. No drug abuse. Lives alone with her both home health aides. Sister is healthcare proxy. REVIEW OF SYSTEMS: All 14 systems were reviewed and as per HPI. PHYSICAL EXAM: Morbidly obese female in bed, in no apparent distress. Vital Signs: Temperature 97.5, pulse 98 beats per minute, respiratory rate 16 per minute, O2 sat 95% on 2 L, blood pressure 124/46. HEENT: Pupils equal, reactive to light. Mucous membranes moist. Lungs: Clear to auscultation bilaterally, diminished air entry at bases. Cardiovascular: S1, S2 present, regular. Abdomen: Obese. Bowel sounds present. Biliary drain in the right abdomen with green drainage. Extremities: Normal range of motion in the right extremity. Skin: Intact. No rash. Neurologic: Alert, oriented x3. Can only move left upper extremity with weak respiratory care instructor of the left hand. Paralyzed in lower extremities. Could not move her right upper extremity. DIAGNOSTIC STUDIES/LAB DATA: WBC count 10.7, hemoglobin 12.5, hematocrit 37, platelet count 216,000. Sodium 135, potassium 4.6, chloride 109, bicarb 16, BUN 17, creatinine 0.59, glucose 148, calcium 8.2. UA positive, cultures E. coli. Chest x-ray as described above in HPI. Echo as described above in HPI. IMPRESSION AND RECOMMENDATIONS: 82-year-old obese female with history of multiple sclerosis, with lower extremity paralysis, weakness of upper extremity , chronically bedridden with left hip spiral fractures. Pulmonary consultation was requested given significant comorbidities and finding of severe pulmonary hypertension on echocardiogram. The patient is being evaluated for possible pelvic girdle procedure. The patient is very high risk for postop complications given her comorbidities. - Pulmonary hypertension, severe. -Chronically bedridden status and paralysis with weak cough reflex and inability to mobilize after surgery. 1.The patient with severe pulmonary hypertension noted on echocardiogram. Unclear etiology of pulmonary hypertension; however, possibilities include underlying sleep apnea that is not being diagnosed or treated, possible chronic obstructive pulmonary disease or from chronic thromboembolism. Her chest x-ray does not show significant hyperinflation. She does not have significant atelectasis or any evidence of scar tissue. Pulmonary hypertension definitely puts her in high risk for postoperative complications. Spinal anesthesia is generally better tolerated, preferred over general anesthesia in patients with pulmonary hypertension. She is at increased risk for hypoxemia, right heart failure and circulatory collapse during and in the postoperative period. The patients with pulmonary hypertension require careful monitoring of fluid balance , oxygenation status and hemodynamic status radha and postoperatively. Unfortunately, we could not get any information regarding her exercise tolerance as she is chronically bedridden. She might have been symptomatic just because of her bedridden status. Patients with severe pulmonary hypertension are at high risk for postoperative right heart failure and respiratory complications. They would benefit from close perioperative monitoring with right heart catheterization to monitor the hemodynamic parameters. Close monitoring of the hemodynamic status, avoiding aggressive hydration and using diuretics would be helpful. 2. She is chronically bedridden and paralyzed from multiple sclerosis, which also makes it more challenging to mobilize her postsurgery. She is at high risk for atelectasis, mucus plugging. She has poor cough reflex at baseline, which could complicate things. Due to her bedridden status, she is also at increased risk for deep venous thrombosis and pulmonary embolism postoperatively. I definitely think the patient is at very high surgical risk for postoperative complications. Unfortunately, other than maintaining euvolemic status which she is already in, there is no other management option at this point to optimize her for surgery. Since we do not know her right- sided pressures nor her wedge pressures with invasive testing with right heart cath, I would not be able to recommend any medications for pulmonary hypertension at this time. If the anesthesiologist would be able to place right heart catheter and then monitor the hemodynamics through the surgery and determine the wedge pressure and use diuretics and pulmonary hypertension medications, then it would be feasible. If this couldnot be performed here, transport to facility where swan anahi placement and monitoring of hemodynamic status could be performed should be considered. I have discussed above with the patient and her sister Angle over phone. Thank you for allowing me to participate in the care of your patient. Above recommendations were discussed with Tressa HERRMANN. [id number]/[facility] #: [id number] CANDELARIO
[2018-01-19] MEDS: CMCS:Melatonin (NF) 3 MG TAB PO SCH (21:31)
[2018-01-19] MEDS: Phenytoin CAP(*) 100 MG CAP.ER PO SCH (21:32)
[2018-01-19] MEDS: Gabapentin CAP(*) 100 MG PO SCH (21:34)
[2018-01-19] MEDS: Aspirin EC TAB* 81 MG TAB.EC PO SCH (21:36)
[2018-01-19] MEDS: Morphine VIAL* 4 MG/ML VIAL (1 ml vial) IV PRN (23:49)
[2018-01-20] MEDS: oxyCODONE TAB* 5 MG TAB PO PRN (00:34)
[2018-01-20] MEDS: ceFAZolin 1 GM in Dextrose (*) 1 GM/50 ML BAG IVPB SCH ×2 (00:37→11:01)
[2018-01-20] MEDS: oxyCODONE/Acetamin 5/325 MG* TAB PO PRN ×2 (05:10→12:43)
[2018-01-20] MEDS: Morphine VIAL* 4 MG/ML VIAL (1 ml vial) IV PRN (07:49)
[2018-01-20] MEDS: Omeprazole CAP* 20 MG PO SCH ×2 (11:00→12:43)
[2018-01-20] MEDS: Potassium Chlor TAB* 20 MEQ TAB.ER PO SCH (12:43)
[2018-01-20] MEDS: CMCS:Meloxicam(NF) 7.5 MG TAB PO SCH (12:43)
[2018-01-20] MEDS: Multivitamins/Minerals TAB PO SCH (12:44)
[2018-01-20] MEDS: Diazepam TAB(*) 5 MG PO PRN (12:52)
--- NOTE | 2018-01-20 15:46 | PN ---
Progress Note - Progress Note Date of Service: 01/20/18 SOAP: Subjective: []Patient seen at bedside. Her left leg is quite painful at this time. Denies chest pain, shortness of breath or dizziness. Objective: [] Vital Signs Temp 97.9 F 01/20/18 04:11 Pulse 90 01/20/18 04:11 Resp 18 01/20/18 12:52 BP 117/38 01/20/18 04:11 Pulse Ox 92 01/20/18 04:11 Intake & Output 01/19/18 01/20/18 01/20/18 18:59 06:59 18:59 Intake Total 240 0 120 Output Total 575 805 200 Balance -335 -805 -80 Intake: Oral 240 0 120 Output: Pigtail Drain 450 245 Silver 125 560 200 Other: Estimated Void Small Laboratory Last Values WBC 11.1 10^3/ul (3.5-10.8) H 01/19/18 20:01 RBC 3.64 10^6/ul (4.0-5.4) L 01/19/18 20:01 Hgb 11.8 g/dl (12.0-16.0) L 01/19/18 20:01 Hct 36 % (35-47) 01/19/18 20:01 MCV 100 fL (80-97) H 01/19/18 20:01 MCH 33 pg (27-31) H 01/19/18 20:01 MCHC 33 g/dl (31-36) 01/19/18 20:01 RDW 14 % (10.5-15) 01/19/18 20:01 Plt Count 181 10^3/ul (150-450) 01/19/18 20:01 MPV 7.8 um3 (7.4-10.4) 01/19/18 20:01 Neut % (Auto) 77.5 % (38-83) 01/19/18 20:01 Lymph % (Auto) 12.9 % (25-47) L 01/19/18 20:01 [place] % (Auto) 7.2 % (0-7) H 01/19/18 20:01 Eos % (Auto) 1.8 % (0-6) 01/19/18 20:01 Baso % (Auto) 0.6 % (0-2) 01/19/18 20:01 Absolute Neuts (auto) 8.6 10^3/ul (1.5-7.7) H 01/19/18 20:01 Absolute Lymphs (auto) 1.4 10^3/ul (1.0-4.8) 01/19/18 20:01 Absolute Monos (auto) 0.8 10^3/ul (0-0.8) 01/19/18 20:01 Absolute Eos (auto) 0.2 10^3/ul (0-0.6) 01/19/18 20:01 Absolute Basos (auto) 0.1 10^3/ul (0-0.2) 01/19/18 20:01 Absolute Nucleated RBC 0 10^3/ul 01/19/18 20:01 Nucleated RBC % 0 01/19/18 20:01 INR (Anticoag Therapy) 0.95 (0.77-1.02) 01/19/18 20:01 APTT 26.9 seconds (26.0-36.3) 01/19/18 20:01 Sodium 135 mmol/L (139-145) L 01/17/18 19:02 Potassium 4.6 mmol/L (3.5-5.0) 01/18/18 05:39 Chloride 109 mmol/L (101-111) 01/17/18 19:02 Carbon Dioxide 16 mmol/L (22-32) L 01/17/18 19:02 Anion Gap 10 mmol/L (2-11) 01/17/18 19:02 BUN 19 mg/dL (6-24) 01/19/18 20:01 Creatinine 0.70 mg/dL (0.51-0.95) 01/19/18 20:01 Est GFR ( Amer) 103.0 (>60) 01/19/18 20:01 Est GFR (Non-Af Amer) 80.1 (>60) 01/19/18 20:01 BUN/Creatinine Ratio 28.8 (8-20) H 01/17/18 19:02 Glucose 148 mg/dL (70-100) H 01/17/18 19:02 Calcium 8.2 mg/dL (8.6-10.3) L 01/17/18 19:02 Urine Color Yellow 01/17/18 12:00 Urine Appearance Clear 01/17/18 12:00 Urine pH 6.0 (5-9) 01/17/18 12:00 Ur Specific Thoreau 1.019 (1.010-1.030) 01/17/18 12:00 Urine Protein Negative (Negative) 01/17/18 12:00 Urine Ketones Negative (Negative) 01/17/18 12:00 Urine Blood Negative (Negative) 01/17/18 12:00 Urine Nitrate Positive (Negative) A 01/17/18 12:00 Urine Bilirubin Negative (Negative) 01/17/18 12:00 Urine Urobilinogen Negative (Negative) 01/17/18 12:00 Ur Leukocyte Esterase Negative (Negative) 01/17/18 12:00 Urine WBC (Auto) Trace(0-5/hpf) (Absent) 01/17/18 12:00 Urine RBC (Auto) Trace(0-2/hpf) (Absent) 01/17/18 12:00 Ur Squamous Epith Cells Present (Absent) A 01/17/18 12:00 Urine Bacteria 3+ (Absent) A 01/17/18 12:00 Urine Glucose Negative (Negative) 01/17/18 12:00 General: Laying comfortably in bed, NAD LLE: immobilizer in place. Thigh is tender but compressible without erythema or skin breakdown. Cannot df/pf which is baseline. DP 2+, capillary refill less than two seconds distally. BL LE: Calves supple and nontender without erythema, edema or palpable cords. Assessment: []Displaced femoral neck fracture, left Plan: - DVT prophylaxis- heparin in house - PT/ OT - Likely requires transfer to facility with ability to monitor pressures with swan anahi during procedure
[2018-01-20] MEDS ORDERED: Heparin VIAL(*) 5000 UNITS/ML VIAL (FIVE THOUSAND) SUBCUT SCH (16:00)
--- NOTE | 2018-01-20 16:21 | PN ---
Progress Note - Progress Note Date of Service: 01/20/18 - Pulm f/u note Note: Pt seen and examined at bedside. No new complaints. Pain is better Active Medications Generic Name Dose Route Start Last Admin Trade Name Freq PRN Reason Stop Dose Admin Acetaminophen 650 mg 01/17/18 17:03 01/19/18 21:33 Tylenol Tab* PO 650 mg Q4H PRN Administration FEVER/PAIN Aspirin 81 mg 01/17/18 21:00 01/19/18 21:36 Aspirin Ec Tab* PO 81 mg BEDTIME ИРИНА Administration Diazepam 2.5 mg 01/17/18 18:34 01/20/18 12:52 Valium Tab(*) PO 2.5 mg Q4H PRN Administration muscle spasm Docusate Sodium 100 mg 01/18/18 20:37 01/18/18 20:23 Colace Cap* PO 100 mg SuTuTh ИРИНА Administration Gabapentin 100 mg 01/17/18 21:00 01/19/18 21:34 Neurontin Cap(*) PO 100 mg BEDTIME ИРИНА Administration Heparin Sodium (Porcine) 5,000 units 01/20/18 16:00 Heparin Vial(*) SUBCUT Q8H ИРИНА Cefazolin Sodium/Dextrose 1 gm in 50 mls @ 200 mls/hr 01/18/18 17:00 11:01 Kefzol 1 Gm In Dextrose Duplex (*) IVPB 200 mls/hr Q8H ИРИНА Administration Melatonin 3 mg 01/17/18 21:00 01/19/18 21:31 Melatonin (Nf) PO 3 mg BEDTIME ИРИНА Administration Meloxicam 7.5 mg 01/18/18 09:00 01/20/18 12:43 Mobic(Nf) PO 7.5 mg DAILY ИРИНА Administration Morphine Sulfate 1 mg 01/17/18 17:03 01/20/18 07:49 Morphine Vial* IV 1 mg Q4H PRN Administration PAIN Multivitamins/Minerals 1 tab 01/19/18 09:00 01/20/18 12:44 Theragran/Minerals Tab* PO 1 tab DAILY ИРИНА Administration Omeprazole 20 mg 01/18/18 07:30 01/20/18 12:43 Prilosec Cap* PO 20 mg DAILY@0730 ИРИНА Administration Ondansetron HCl 4 mg 01/18/18 17:58 01/20/18 07:42 Zofran Odt Tab* SL 4 mg Q4H PRN Administration NAUSEA/VOMITING Oxycodone HCl 5 mg 01/17/18 18:34 01/20/18 00:34 Roxycodone Tab* PO 5 mg Q6H PRN Administration PAIN Oxycodone/Acetaminophen 1 tab 01/17/18 17:03 01/20/18 12:43 Percocet 5/325 Tab* PO 1 tab Q4H PRN Administration Pain Phenytoin Sodium 100 mg 01/17/18 21:00 01/19/18 21:32 Dilantin Cap(*) PO 100 mg BEDTIME ИРИНА Administration Potassium Chloride 20 meq 01/17/18 21:00 01/20/18 12:43 Klor Con Er Tab* PO 20 meq BID ИРИНА Administration Senna 1 tab 01/18/18 18:04 01/18/18 18:12 Senokot Tab* PO 1 tab SUTUTH ИРИНА Administration Vital Signs Temp Pulse Resp BP Pulse Ox 97.9 F 90 18 117/38 92 01/20/18 04:11 01/20/18 04:11 01/20/18 12:52 01/20/18 04:11 01/20/18 04:11 O/E: Obese f in bed in NAD HEENT: PERRLA, No JVD Lungs: Good a/e b/l, decreased at bases CVS: S1, S2+ Abd: Obses, BS+ Skin: No rash Laboratory Results - last 24 hr 01/19/18 01/19/18 01/19/18 20:01 20:01 20:01 WBC 11.1 H RBC 3.64 L Hgb 11.8 L Hct 36 MCV 100 H MCH 33 H MCHC 33 RDW 14 Plt Count 181 MPV 7.8 Neut % (Auto) 77.5 Lymph % (Auto) 12.9 L [place] % (Auto) 7.2 H Eos % (Auto) 1.8 Baso % (Auto) 0.6 Absolute Neuts (auto) 8.6 H Absolute Lymphs (auto) 1.4 Absolute Monos (auto) 0.8 Absolute Eos (auto) 0.2 Absolute Basos (auto) 0.1 Absolute Nucleated RBC 0 Nucleated RBC % 0 INR (Anticoag Therapy) 0.95 APTT 26.9 BUN 19 Creatinine 0.70 Est GFR ( Amer) 103.0 Est GFR (Non-Af Amer) 80.1 I/R: 82 y o f with MS, bed ridden with hip fracture, needing surgery Pt deemed to be higher risk for anesthesia sec to severe pulm HTN noted on ECHO , bed ridden status , poor cough reflex and concern for atelctasis and increased risk for pulm complications Pt with better pain control at this time Plan for transfer to tertiary facility for [place] [facility] monitoring postoperatively as per primary team Will sign off from pulmonary perspective, reconsult if I could be of any assistance
[2018-01-20 16:53] VITALS: BP 101/38
--- NOTE | 2018-01-21 05:02 | PN ---
PROGRESS NOTE: DATE OF SERVICE: 01/20/18 SUBJECTIVE: Ms. Rayo is in bed today in good spirits. We discussed her transfer to [facility] and she agrees. We once again discussed openly that the patient has high risk of . She reports to me today that she accepts and is ready for . She does not accept and is not ready to be bedridden and in chronic pain. PHYSICAL EXAM: Left lower extremity: Patient's skin is intact. Tenderness to palpation of the upper thigh. The leg is shortened and externally rotated. The knee is in a knee immobilizer. Minimal sensation distally and no motor. 2+ palpable DP pulse. ASSESSMENT AND PLAN: Ms. Rayo is an 82-year-old female with end-stage multiple sclerosis. She has bilateral lower extremity paralysis. She is now starting to have osteoporotic fractures by simply moving. She has displaced left femoral neck fracture and I recommended a Girdlestone procedure for pain control. Our anesthesia team does not feel comfortable performing this at our institution because of her pulmonary hypertension and other comorbidities. We have requested a transfer to the [facility]. I did discuss the patient with Dr. Waddell of the [facility] Orthopedics Department. He has accepted to evaluate the patient. We discussed my plan of a Girdlestone procedure but of course I defer to his surgical decision making. [id number]/[facility] #: [id number] CANDELARIO
--- NOTE | 2018-01-21 13:14 | TRS ---
TRANSFER SUMMARY: DATE OF ADMISSION: 01/17/18 DATE OF TRANSFER: 01/20/18 DISPOSITION: [facility]. PRINCIPAL TRANSFER DIAGNOSES: 1. Left femoral neck fracture. 2. Pulmonary hypertension. 3. Multiple sclerosis. SECONDARY DISCHARGE DIAGNOSES: 1. History of cholecystitis, status post biliary drain. 2. Neurogenic bladder, with chronic Silver catheter. 3. Recent left femoral spiral fracture, being treated nonoperatively. 4. Frequent urinary tract infections, on chronic suppression antibiotics. 5. Gastroesophageal reflux disease. PHYSICAL EXAM AT THE TIME OF DISCHARGE: Temperature 97.9, heart rate 90, respiratory rate 16, pulse ox 92% on room air, blood pressure 117/38. General: Obese, elderly female, in no distress. HEENT: Pupils equal, round, and reactive to light. No nystagmus. Moist mucosa. No pharyngeal exudates or erythema. Neck: No cervical or supra-clavicular lymphadenopathy. Chest: Regular rate and rhythm. No heaves appreciated parasternally. Unable to palpate her PMI. Lungs: Clear bilaterally. No appreciable wheezes or rhonchi. Abdomen: Obese. A right upper quadrant biliary drain is in place, draining brown fluid. Her abdomen is soft and nontender, without guarding or rebound. Extremities: No ulcers, rashes are noted. Neurologic: Her strength is 0/5 in bilateral lower extremities, but sensation is intact. Her strength in her right upper extremity is 0/5 and her strength in her left upper extremity is 3/5. Her left leg is in an immobilizer. PERTINENT IMAGING STUDIES: 1. Transthoracic echocardiogram, 01/17/18, showed a normal LV chamber size, global LV wall motion and contractility within normal limits, LV appeared hyperdynamic, EF greater than 70%, RV chamber size and systolic function within normal limits, with mild tricuspid regurgitation, evidence of severe pulmonary hypertension, the RV systolic pressure is estimated at 63, assuming an RA pressure of 8 mmHg. 2. Pelvis x-ray: Displaced, angulated subcapital left femoral neck fracture. 3. Femur x-ray: Acute displaced subcapital femoral neck fracture and acute to subacute, slightly displaced fracture of the distal diaphysis of the femur, and probable subacute, slightly impacted fracture of the distal metaphysis of the femur. HOSPITAL COURSE BY PROBLEM: 1. Left femoral neck fracture. This was nontraumatic and in the setting of being rolled in bed, likely related to severe underlying osteopenia due to her nonweightbearing status since 1986. A Girdlestone procedure was discussed with her with the main goal being pain control and ability to transfer from the bed to the chair as this is her main priority. She was evaluated by our surgical, pulmonary, and anesthesia team who, based on her pulmonary hypertension, deemed her to be too high risk for our intraoperative monitoring capabilities. Based on this risk assessment and Khadra's desire to proceed with surgery, she was accepted by Dr. Cowan at [facility], from the medical team, and Dr. Waddell from the orthopedic team who reviewed her images. 2. Pulmonary hypertension. Again, this finding was found only on a transthoracic echocardiogram. She has had no further workup as this is a new diagnosis. The etiology remains unclear and may be related to undiagnosed sleep apnea, undiagnosed COPD, and given her nonambulatory status, the differential remains broad. She was evaluated by our software testing specialist who did not feel that pulmonary vasodilators were indicated at this point. 3. Multiple sclerosis. She has been nonambulatory since the s. Her only function is in her left upper extremity; however, she and her sister, Iram, who is her healthcare proxy, report excellent quality of life. She is able to host parties, FaceTime on her iPad, and visit with family. 4. Chronic urinary tract infections. She takes Bactrim suppression. 5. Chronic biliary drain. This was due to acute cholecystitis several years ago. At that time, she was deemed to be a nonoperative candidate due to the need for general anesthesia because of her diaphragmatic weakness from MS, and poor cough reflex. So, she has a biliary drain in place chronically. 6. Disposition. Ms. Rayo is being transferred to [facility] where she has been accepted by the medical team for a Girdlestone procedure with orthopedic surgery. Ms. Rayo accepts this transfer including the risks for transfer. Her healthcare proxy is her sister, Iram, should you need to reach her. Please do not hesitate to contact me with any questions or concerns about this admission or discharge summary. My cell phone is [phone]. [id number]/[facility] #: [id number] MTDD
== END 2018-01-20 17:40 | disposition short-term general hospital (02) | DRG 543 ==
LOC: SSU 16:27
PROVIDERS: ADMIT Internal Medicine; ATTEND Internal Medicine
DX: M80.052A Age-related osteoporosis with current pathological fracture, left femur, initial encounter for fracture (principal); G82.20 Paraplegia, unspecified; N39.0 Urinary tract infection, site not specified; G35 Multiple sclerosis; K21.9 Gastro-esophageal reflux disease without esophagitis; K57.90 Diverticulosis of intestine, part unspecified, without perforation or abscess without bleeding; Z66 Do not resuscitate; I27.20 Pulmonary hypertension, unspecified; N31.9 Neuromuscular dysfunction of bladder, unspecified; I07.1 Rheumatic tricuspid insufficiency; G83.10 Monoplegia of lower limb affecting unspecified side; E66.9 Obesity, unspecified; K59.09 Other constipation; Z90.10 Acquired absence of unspecified breast and nipple; Z90.710 Acquired absence of both cervix and uterus; Z88.8 Allergy status to other drugs, medicaments and biological substances; Z82.49 Family history of ischemic heart disease and other diseases of the circulatory system; Z87.440 Personal history of urinary (tract) infections; Z68.26 Body mass index [BMI] 26.0-26.9, adult; Z74.01 Bed confinement status; Z87.891 Personal history of nicotine dependence
CPT/HCPCS: 36415; 71045; 80048; 81003; 81015; 82565; 84520; 85025; 85610; 85730; 87077; 87086; 87186; 93005; 93306; A9270-GY; J0690; J1644; J2270